=== PATIENT | male | born 1965 | race Caucasian/White ===

== ENCOUNTER 2017-08-03 10:12 | Emergency (ER) | payer OTHER ==
--- NOTE | 2017-08-03 10:46 | EDM.PDOC ---
ED HPI GENERAL MEDICAL PROBLEM - General Chief Complaint: Allergic Reaction Stated Complaint: ER Time Seen by Provider: 08/03/17 10:30 Source of Information: Reports: Patient, RN, RN Notes Reviewed History Limitations: Reports: No Limitations - History of Present Illness INITIAL COMMENTS - FREE TEXT/NARRATIVE: Patient presents to the ED at [facility] for concerns of left neck swelling that start this AM. He states he has been working on a possible allergic rash the past 5 weeks. He recently completed taking Prednisone last Wednesday for the rash. He denies any injury or trauma to the neck. No SOB or chest pain. He is very shaky, but states "my lifestyle has not been the best lately." Patient denies any trouble with breathing, phonation, or eating. Onset: Today Onset Date: 08/03/17 Back Pain Score (Numeric/FACES): 4 - Related Data Allergies Allergy/AdvReac Type Severity Reaction Status Date / Time Penicillins Allergy Cannot Verified 08/03/17 10:43 Remember Home Meds: Home Meds Acetaminophen [Tylenol] 650 mg TID PRN 08/03/17 [History] Amitriptyline [Elavil] 50 mg BEDTIME 08/03/17 [History] Ranitidine [Zantac] 75 mg BID 08/03/17 [History] Past Medical History - Past Health History Medical/Surgical History: Denies Medical/Surgical History Other Musculoskeletal History: Right hand fx multiple times to same spot. Concussion in may 2014 Other Neuro History: Concussion with stitches needed in May 2014. Some chronic headaches for short time following concussion. Social & Family History - Tobacco Use Smoking Status *Q: Never Smoker - Alcohol Use Days Per Week of Alcohol Use: 6 Number of Drinks Per Day: 6 Total Drinks Per Week: 36 - Recreational Drug Use Recreational Drug Use: No ED ROS ALLERGIC REACTION - Review of Systems Review Of Systems: See Below Constitutional: Denies: Fever, Chills, Weakness HEENT: Reports: No Symptoms Respiratory: Denies: Shortness of Breath, Cough Cardiovascular: Denies: Chest Pain, Palpitations Musculoskeletal: Reports: Other (left neck soft tissue swelling) Skin: Reports: Rash (on back and upper anterior chest wall) Neurological: Reports: No Symptoms ED EXAM GENERAL NO PERIP PULSE - Physical Exam Exam: See Below Exam Limited By: No Limitations General Appearance: Alert, Anxious Eye Exam: Bilateral Eye: EOMI, Normal Inspection, PERRL Nose: Normal Inspection Throat/Mouth: Normal Inspection, Normal Oropharynx, No Airway Compromise Head: Atraumatic, Normocephalic Neck: Supple, Full Range of Motion, Other (mild soft tissue swelling of the left neck extending down into the left clavicular groove; no evidence of trauma ; no bruising; slightly tender to deep palpation) Respiratory/Chest: No Respiratory Distress, Lungs Clear, Normal Breath Sounds Cardiovascular: Normal Peripheral Pulses, Regular Rate, Rhythm Neurological: Alert, Oriented Skin Exam: Rash (erythematous scaling scattered patches over the back inconsistent with any acute finding; no drainage; non-tender; no evidence of infection) Course - Vital Signs Last Recorded V/S: Last Vital Signs Temp 37.6 C 08/03/17 10:30 Pulse 107 H 08/03/17 10:30 Resp 20 08/03/17 10:30 BP 174/98 H 08/03/17 10:30 Pulse Ox 97 08/03/17 10:30 - Orders/Labs/Meds Orders: Active Orders 24 hr Category Date Time Status Soft Tissue Neck wo Cont [CT] Stat Exams 08/03/17 10:53 Taken Labs: Laboratory Tests 08/03/17 08/03/17 Range/Units 11:04 11:04 WBC 9.4 (4.0-10.0) x10^3/uL RBC 4.11 L (4.5-6.0) x10^6/uL Hgb 13.8 L (14.0-18.0) g/dL Hct 41.1 (40.0-52.0) % MCV 100.0 H D (78.0-93.0) fL MCH 33.6 H (26.0-32.0) pg MCHC 33.6 (32.0-36.0) g/dL RDW Coeff of Bailee 14.2 (10.0-15.0) % Plt Count 197 (130-400) x10^3/uL Neut % (Auto) 62.6 (50.0-80.0) % Lymph % (Auto) 28.6 (25.0-50.0) % Dawson % (Auto) 8.2 (2.0-11.0) % Eos % (Auto) 0.4 (0.0-4.0) % Baso % (Auto) 0.2 (0.2-1.2) % Sodium 141 (136-145) mmol/L Potassium 3.8 (3.5-5.1) mmol/L Chloride 106 (98-107) mmol/L Carbon Dioxide 28 (21-32) mmol/L BUN 12 (7-18) mg/dL Creatinine 0.8 (0.70-1.30) mg/dL Est Cr Clr Drug Dosing 110.47 mL/min Estimated GFR (MDRD) > 60 Glucose 102 (74-106) mg/dL Calcium 8.8 (8.5-10.1) mg/dL - Radiology Interpretation Free Text/Narrative:: CT Soft Tissue Neck: No radiographic evidence of cellulitis, phlegmon, or abscess See scanned report in EMR CT Results Date: 08/03/17 CT Results Time: 12:42 Departure - Departure Time of Disposition: 13:19 Disposition: Home, Self-Care 01 Condition: Good Clinical Impression: Rash and nonspecific skin eruption, Neck swelling - Discharge Information Instructions: Rash Referrals: Cristina Rojas NP [Primary Care Provider] - Forms: ED Department Discharge Additional Instructions: 1. Stay well hydrated and rest 2. Continue medications the same if you are on any from the clinic 3. Recommend seeing your Primary for further investigation and possible treatment 4. Call us with any concerns - Problem List Review Problem List Initiated/Reviewed/Updated: Yes - My Orders Last 24 Hours: My Active Orders 08/03/17 10:53 Soft Tissue Neck wo Cont [CT] Stat - Assessment/Plan Last 24 Hours: My Active Orders 08/03/17 10:53 Soft Tissue Neck wo Cont [CT] Stat Assessment:: CT and Labs are normal. No emergent etiology found for patients symptoms. Recommend follow up with PCP for further test as symptoms warrant.
[2017-08-03 10:59] VITALS: BP 174/98
[2017-08-03 11:23] LABS: CHLORIDE,CL 106 mmol/L (98-107); SODIUM,NA 141 mmol/L (136-145)
== END 2017-08-03 13:27 | disposition home or self-care (01) ==
LOC: VM.ED 10:12
DX: R22.1 Localized swelling, mass and lump, neck (principal); R21 Rash and other nonspecific skin eruption; Z88.0 Allergy status to penicillin; Z79.899 Other long term (current) drug therapy
CPT/HCPCS: 36415; 70490; 80048; 85025; 99284

== ENCOUNTER 2017-09-09 19:43 | Emergency (ER) | payer SELFPAY ==
--- NOTE | 2017-09-09 19:55 | EDM.PDOC ---
ED HPI GENERAL MEDICAL PROBLEM - General Chief Complaint: Lower Extremity Injury/Pain Stated Complaint: Left ankle injury Time Seen by Provider: 09/09/17 19:43 Source of Information: Reports: Patient, Family, RN, RN Notes Reviewed History Limitations: Reports: No Limitations - History of Present Illness INITIAL COMMENTS - FREE TEXT/NARRATIVE: Patient presents to the ED at [facility] complaining of left foot/ankle pain after he fell down a flight of stairs, causing an inversion injury. Patient complains of global foot pain. No previous history or trauma. No previous left foot/ankle surgeries. Patient is able to able, but favors the left leg. Onset Date: 09/07/17 Duration: Waxing/Waning Location: Reports: Lower Extremity, Left Quality: Reports: Throbbing Severity: Moderate Improves with: Reports: Rest Worsens with: Reports: Movement Context: Reports: Trauma Associated Symptoms: Reports: No Other Symptoms Treatments MEDICAL TECHNOLOGIST GENERALIST: Reports: Other (see below) (alcohol consumption) Left Ankle Pain Score (Numeric/FACES): 7 - Related Data Allergies Allergy/AdvReac Type Severity Reaction Status Date / Time Penicillins Allergy Cannot Verified 09/09/17 19:50 Remember Home Meds: Home Meds Cephalexin [Keflex] 1 tab PO QID 09/09/17 [History] Meclizine [Antivert] 25 mg PO TID 09/09/17 [History] Past Medical History - Past Health History Medical/Surgical History: Denies Medical/Surgical History Cardiovascular History: Reports: Hypertension Other Musculoskeletal History: Right hand fx multiple times to same spot. Concussion in may 2014 Other Neuro History: Concussion with stitches needed in May 2014. Some chronic headaches for short time following concussion. Psychiatric History: Reports: Anxiety - Past Surgical History Musculoskeletal Surgical History: Reports: Shoulder Surgery Review of Systems - Review of Systems Review Of Systems: See Below Constitutional: Denies: Chills, Fever, Weakness Respiratory: Denies: Shortness of Breath, Cough Cardiovascular: Denies: Chest Pain, Palpitations Musculoskeletal: Reports: Foot Pain, Joint Pain, Joint Swelling Skin: Reports: Bruising (left foot/ankle) Neurological: Reports: Confusion (alcohol intoxication) ED EXAM, GENERAL - Physical Exam Exam: See Below Exam Limited By: Intoxication General Appearance: Alert, No Apparent Distress, Other (slurring words) Head: Atraumatic, Normocephalic Neck: Supple Respiratory/Chest: No Respiratory Distress, Lungs Clear, Normal Breath Sounds Cardiovascular: Normal Peripheral Pulses, Regular Rate, Rhythm Peripheral Pulses: 2+: Posterior Tibial (L), Posterior Tibial (R), Dorsalis Pedis (L), Dorsalis Pedis (R) Back Exam: Normal Inspection Extremities: Joint Swelling, Limited Range of Motion, Increased Warmth, Other ( bruising and swelling of left ankle/foot) Neurological: Alert, Confused (related to alcohol intoxication) Skin Exam: Warm, Dry, Intact, Ecchymosis (left foot/ankle) Course - Vital Signs Last Recorded V/S: Last Vital Signs Temp 36.8 C 09/09/17 19:53 Pulse 127 H 09/09/17 19:53 Resp 16 09/09/17 19:53 BP 162/90 H 09/09/17 19:53 Pulse Ox 97 09/09/17 19:53 - Orders/Labs/Meds Orders: Active Orders 24 hr Category Date Time Status Ankle Min 3V Lt [CR] Stat Exams 09/09/17 19:49 Taken - Radiology Interpretation Free Text/Narrative:: Ankle, Left 3V: Minimally displaced lateral malleolar fracture See scanned report in EMR Departure - Departure Time of Disposition: 20:31 Disposition: Home, Self-Care 01 Clinical Impression: Lateral malleolar fracture Qualifiers: Encounter type: initial encounter Fracture type: closed Fracture alignment: displaced Laterality: left Qualified Code(s): S82.62XA - Displaced fracture of lateral malleolus of left fibula, initial encounter for closed fracture - Discharge Information Instructions: Ankle Fracture Referrals: Jesús Ferrer MD [Ordering Only Provider] - (Tomorrow (09/10/2017) [facility]; afternoon appointment) Forms: ED Department Discharge Additional Instructions: 1. Stay well hydrated and rest 2. Wear walking boot at all times to protect the fracture 3. Non weight-baring 4. Tylenol/Advil for pain 5. Apply ice 6. See Dr. Carson [facility] clinic tomorrow afternoon in [place] 7. Call us with any questions/concerns ED Communication - ED Communication Date/Time Date: 09/09/17 Time Called: 20:25 - Discussed Case With (1) Discussed Case With (1): Outpatient Provider (Dr. Carson, Orthopedics) - Conversation Summary Outpatient Provider Agreed to Follow-up on this Patient: Yes - Problem List Review Problem List Initiated/Reviewed/Updated: Yes - My Orders Last 24 Hours: My Active Orders 09/09/17 19:49 Ankle Min 3V Lt [CR] Stat - Assessment/Plan Last 24 Hours: My Active Orders 09/09/17 19:49 Ankle Min 3V Lt [CR] Stat Plan: Case discussed with Dr. Carson, [facility]. Patient will be placed in a CAM walker and made non-weight baring. Patient is to go to Dr. Carson's office tomorrow afternoon for an appointment. Patient made aware and agrees with the POC.
[2017-09-09 20:58] VITALS: BP 136/75
== END 2017-09-09 20:50 | disposition home or self-care (01) ==
LOC: VM.ED 19:43
DX: S82.62XA Displaced fracture of lateral malleolus of left fibula, initial encounter for closed fracture (principal); I10 Essential (primary) hypertension; Z88.0 Allergy status to penicillin; W10.9XXA Fall (on) (from) unspecified stairs and steps, initial encounter
CPT/HCPCS: 73610-LT; 99283